=== PATIENT | female | born 1985 | race Caucasian/White ===

== ENCOUNTER → 2017-05-08 | Outpatient (CLI) | payer OTHER ==
[~2017-05-08] MED LIST: DICL-201 PO; MEDR150I INJ; PRLSR20 PO; TRAM-10 PO
== END | disposition home or self-care (01) ==
LOC: C.RDSM 11:20
PROVIDERS: ATTEND Physical Medicine & Rehabilitation Sports Medicine
DX: S43.431D Superior glenoid labrum lesion of right shoulder, subsequent encounter (principal); X58.XXXA Exposure to other specified factors, initial encounter

== ENCOUNTER → 2017-07-31 | Outpatient (CLI) | payer OTHER ==
[~2017-07-31] MED LIST changes: +GADAVIST IV PRN
--- NOTE | 2017-07-31 12:04 | DIAGNOSTIC IMAGING REPORT ---
R UPPER EXTREMITY JOINT W/ CLINICAL HISTORY: 32 years-old Female with RIGHT SHOULDER PAIN. Chronic right shoulder pain for 2 years. Surgery one year prior with persistent pain. COMPARISON: Right shoulder MRI 06/13/2016, right shoulder radiographs 05/08/2017. TECHNIQUE: Multiplanar, multi sequence MRI of the right shoulder was performed following the intra-articular administration of contrast. FINDINGS: ROTATOR CUFF: Mild tendinosis of the supraspinatus and infraspinatus tendons. Low-grade partial-thickness fraying of the mid bursal fibers of the supraspinatus tendon as seen on image 11 of series 8. No high-grade partial or full-thickness rotator cuff tear identified. The rotator cuff musculature is normal in morphology and signal. BICEPS TENDON: The long-head biceps tendon is intact. No evidence of tendinosis. The biceps buddy and anchor are intact. LABRUM: There are postoperative findings from prior labral repair. There is irregularity of the diminutive posterior superior labrum as seen on images 11, 12 and 13 of series 8 and also on images 8 and 9 of series 5 demonstrating areas of increased T2 signal with linear extension of contrast. There is no evidence for a paralabral cyst or displaced fragment. GLENOHUMERAL JOINT: The articular cartilage overlying the glenoid fossa is normal. There is no loose body or debris present within the glenohumeral joint. ACROMIOCLAVICULAR JOINT: Mild joint space narrowing with marginal spurring. The acromium has a gently curved undersurface. No evidence of os acromiale. Trace subacromial/subdeltoid bursitis. OUTLET SPACES: The suprascapular notch and quadrilateral space are without obstructing or space occupying lesions. BONE MARROW: No focal abnormality, fracture or marrow occupying lesion. SOFT TISSUES: The periarticular soft tissues are unremarkable. IMPRESSION: 1. Postoperative findings of the glenoid compatible with prior labral repair. Diminutive irregular appearance of the superior posterior labrum as above is suspicious for re-tear, however postoperative changes may have a similar appearance. There is no evidence for a paralabral cyst or displaced fragment. 2. Mild tendinosis of the supraspinatus and infraspinatus tendons with low-grade partial-thickness fraying of the mid bursal fibers supraspinatus tendon as above. No high-grade partial or full-thickness rotator cuff tear. 3. No long head biceps tendon tear. 4. Trace subacromial/subdeltoid bursitis. The above report was generated using voice recognition software. It may contain grammatical, syntax or spelling errors. Electronically signed by: Miguel Jaramillo M.D. 07/31/2017 12:03 PM Dictated Date/Time: 07/31/2017 11:43 AM
--- NOTE | 2017-08-03 08:01 | DIAGNOSTIC IMAGING REPORT ---
RIGHT SHOULDER INJECTION UNDER FLUOROSCOPIC GUIDANCE FOR MR ARTHROGRAM; RIGHT SHOULDER STEROID INJECTION CLINICAL HISTORY: Right shoulder pain. Injection for MR arthrogram and for steroid injection. PROCEDURE: The risks, benefits, and alternatives to the procedure were discussed with the patient. Written informed consent was obtained. The patient was placed supine on the fluoroscopy table, and a right shoulder injection was performed under fluoroscopic guidance. The area was prepped and draped in the usual sterile fashion. The skin and soft tissues anesthetized with local 1% lidocaine. The right shoulder joint was accessed utilizing a 22-gauge needle, and approximately 6 cc of a mixture of gadolinium contrast, Optiray 300, and saline was injected into the joint space under fluoroscopic guidance. There was normal distention of the capsule. The prescribed dosage of 40 mg of Depo-Medrol and 3 cc of 1% lidocaine was injected into the joint space. The procedure was well tolerated and without immediate complication. The patient was then transferred to MRI for MR arthrography. FLUOROSCOPY TIME: 21 seconds IMPRESSION: Unremarkable injection of the right shoulder under fluoroscopic guidance. The injection included MRI contrast and the prescribed dosage of steroid. Electronically signed by: Zane Davey M.D. 07/31/2017 12:36 PM Dictated Date/Time: 07/31/2017 12:32 PM
== END | disposition home or self-care (01) ==
LOC: C.MRIBC 09:28
PROVIDERS: ATTEND Physical Medicine & Rehabilitation Sports Medicine
DX: M25.511 Pain in right shoulder (principal)